=== PATIENT | male | born 1980 ===

== ENCOUNTER 2022-02-10 22:32 | Emergency (ER) | payer OTHER ==
[2022-02-10 22:42] VITALS: BP 126/81; PULSE 110; RESP 18; TEMP 98.8; BMI 29.9
[2022-02-10] MEDS ORDERED: SODIUM CHLORIDE 1,000 ML IV STA (22:43)
[2022-02-10] MEDS ORDERED: ONDANSETRON 4 MG/2 ML VIAL IVPUSH ONE (22:43)
[2022-02-10 23:04] LABS: HEMATOCRIT 45.3 % (35.4-49); HEMOGLOBIN 15.4 G/dL (11.7-16.9); MEAN CELL VOLUME 76.5 fl (80-96); MEAN PLT VOLUME 8.1 fl (7.5-11.1); PLATELET COUNT 206.6 10^3/uL (134-434); RBC 5.92 10^6/uL (4.00-5.60); RDW 15.2 % (11.9-15.9)
[2022-02-10] MEDS ORDERED: ONDANSETRON 4 MG/2 ML VIAL ONE (23:18)
[2022-02-10 23:20] LABS: ALBUMIN 4.2 g/dl (3.4-5.0); BILIRUBIN,TOTAL 0.9 mg/dl (0.2-1); CALCIUM 8.6 mg/dl (8.5-10); CREATININE 1.2 mg/dl (0.55-1.3); TOT PROT 7.7 g/dl (6.4-8.2)
[2022-02-10 23:26] LABS: PLATELET ESTIMATE ADEQUATE
== END 2022-02-11 01:45 | disposition home or self-care (01) ==
LOC: FER 22:32
PROC: 3E033GC Introduction of Other Therapeutic Substance into Peripheral Vein, Percutaneous Approach (ICD-10-PCS; principal; 2022-02-10)
DX: R10.84 Generalized abdominal pain (principal)
CPT/HCPCS: 36415; 74177-TC; 80053; 83690; 85027; 99285-25; Q9967